=== PATIENT | male | born 1995 | race Caucasian/White ===

== ENCOUNTER 2018-04-01 12:36 | Observation (INO) | payer OTHER ==
[2018-04-01] MEDS ORDERED: Sodium Chloride 0.9% 1000 ML 1,000 ML IV STA (13:03)
[2018-04-01 13:12] LABS: BASOPHIL % 0.3 % (0.0-0.4); Basophil (Absolute #) 0.03 (0-0.4); Eosinophil % 4.2 % (0.00-5.0); Eosinophil (Absolute #) 0.47 (0-0.5); Granulocyte Absolute (ANC) 8.11 (1.4-6.9); Granulocytes % 72.8 % (36.0-66.0); Hematocrit 41.6 % (42-50); Lymphocytes % 17.1 % (24.0-44.0); Mean Corpuscular Hemoglobin 32.5 pg (26-32); Mean Corpuscular Hgb Concent. 36.1 g/dl (32-36); Mean Platelet Volume 9.8 fl (6-9.5); Monocyte (Absolute #) 0.62 (0.0-1.3); Monocytes % 5.6 % (0.0-12.0); Platelet Count 235 K/mm3 (150-450); Red Blood Count 4.62 M/mm3 (4.1-5.6); Red Cell Distribution Width 12.4 % (11.5-14.0); White Blood Count 11.1 K/mm3 (4.0-10.5)
[2018-04-01 13:32] LABS: ALBUMIN 4.8 g/dL (3.5-5.0); ALKALINE PHOSPHATASE 63 U/L (38-126); ANION GAP 12.9 MEQ/L (5-15); BLOOD UREA NITROGEN 12 mg/dL (9-20); CHLORIDE 101 mmol/L (98-107); Calcium 9.3 mg/dL (8.4-10.2); Carbon Dioxide 29 mmol/L (22-30); Creatinine 1 0.78 mg/dL (0.66-1.25); Glucose 96 mg/dL (74-106); Potassium 3.7 mmol/L (3.5-5.1); SGOT/AST 23 U/L (17-59); SGPT/ALT 33 U/L (0-50); SODIUM 139 mmol/L (137-145); Total Protein 7.3 g/dL (6.3-8.2)
[2018-04-01] MEDS ORDERED: Keppra 500 MG/5 ML*** 1,000 MG in D5w 100ML Mini Bag 100 ML 100 ML IV ONE (13:37)
[2018-04-01] MEDS ORDERED: Sodium Chloride 0.9% 1000 ML 1,000 ML ONE (13:48)
[2018-04-01] MEDS ORDERED: Keppra 500 MG/5 ML ONE (13:52)
[2018-04-01] MEDS ORDERED: Sodium Chloride 0.9% 100 ML IVPB 100 ML IV ONE (13:52)
[2018-04-01] MEDS ORDERED: D5w 100ML Mini Bag 100 ML 100 ML IV ONE (13:55)
--- NOTE | 2018-04-01 14:18 | XRAY ---
Exam: CT of the head without IV contrast from 04/01/2018. CTDI: 51.47 Comparison: CT of the head without IV contrast from 11/11/2010. Indication: 23-year-old male with seizure, hit left side of frontal area of head on tailgate after seizure, patient has history of seizures. Technique: Non-IV contrast axial images were obtained through the brain. Reconstructed coronal and sagittal images were created and reviewed. Findings: The ventricles are of normal size. No focal mass effect or midline shift is seen. No acute intracranial bleed or abnormal extra-axial fluid collection is seen. A small amount of falx calcification is seen anteriorly representing no change. The miller matter-white matter interfaces are well-maintained. No low attenuation area to suggest a new territorial infarct is seen. The cortical sulci and basilar cisterns appear unremarkable. Moderate mucosal thickening is seen within the posterior aspect of the left frontal sinus including the frontoethmoid sinus recess on the left. In addition, there is marked soft tissue density within both ethmoid sinuses. I also note moderate peripheral mucosal thickening within the sphenoid sinus on both sides of midline. Minimal mucosal thickening is seen at the upper anterior medial aspect of both maxillary sinuses, left greater than right. No air-fluid levels are seen. These findings are consistent with chronic paranasal sinus disease/chronic sinusitis. The findings are worse as compared to 11/11/2010. The mastoid air cells are clear. The calvarium of the skull appears intact. The internal auditory canals appear unremarkable. The middle ear cavities appear unremarkable., Impression: 1. No acute intracranial bleed or other acute intracranial process is seen. 2. No acute fracture of the calvarium of the skull is seen, particularly within the left frontal region. 3. At least moderate chronic sinusitis/sinus disease is seen throughout the visualized paranasal sinuses, most pronounced within the ethmoid sinuses. This has progressed as compared to 11/11/2010. No definite air-fluid levels are seen.
--- NOTE | 2018-04-01 14:19 | XRAY ---
Exam: AP upright portable chest film from 04/01/2018. Comparison: None. Indication: Syncope/seizure today. Findings: The heart size and contour are normal. I cannot exclude some tiny granulomatous calcifications within the left hilum. The remainder of the sourav and mediastinum appears unremarkable. No air space infiltrates, vascular congestion, pneumothorax, or pleural fluid is seen. The lungs are well expanded. The visualized bones appear intact. Impression: 1. No infiltrates or other acute cardiopulmonary disease is seen.
--- NOTE | 2018-04-01 14:28 | ERPHSYRPT ---
- History of Present Illness Time Seen by Provider: 04/01/18 13:00 Source: patient Exam Limitations: clinical condition Patient Subjective Stated Complaint: syncopal episode approximately 1130 this date Triage Nursing Assessment: pt ambulated to room 5 per self, steady gait, no noted difficulties, pt reportedly experienced a syncopal episode at approximately 1130, was seated on the tailgate of a truck when he had a witnessed sycnopal episode, father states other workers reported seizure like activity, pt has no history of seziures, denies headache, denies chest pain, denies dizziness or nause, denies any pain, pressure or ringing in the ears Physician History: PATIENT WITH A HISTORY OF SYNCOPE 1 YEAR AGO HAD A WITNESSED EPISODE OF SYNCOPE PRIOR TO ARRIVAL ASSOCIATED WITH TREMORS. HAD ASSOCIATED, DENIES HEADACHE, BLURRED VISION, URINARY INCONTINENCE, NECK PAIN, NUMBNESS, TINGLING OR WEAKNESS IN EXTREMITIES. Witnessed: by friend Prior Episodes: single episode today Timing/Duration: today Precipitating Factors: none Context: standing Loss of Consciousness: no loss of consciousness, other (FRIEND STATES PATIENT HAD TREMORS DURING SYNCOPE EPISODE) Charcter of event(s): became unresponsive, seizure activity observed Allergies/Adverse Reactions: No Known Drug Allergies Allergy (Unverified 04/01/18 12:57) Home Medications: Quetiapine Fumarate [Seroquel] 25 mg PO 04/01/18 [History] Hx Tetanus, Diphtheria Vaccination/Date Given: No Hx Influenza Vaccination/Date Given: No Hx Pneumococcal Vaccination/Date Given: No Immunizations Up to Date: No - Past Medical History Neurological History: Migraines ENT History: No Pertinent History Cardiac History: No Pertinent History Respiratory History: No Pertinent History Endocrine Medical History: No Pertinent History Musculoskeletal History: No Pertinent History GI Medical History: No Pertinent History History: No Pertinent History Psycho-Social History: Depression Male Reproductive Disorders: No Pertinent History - Past Surgical History Past Surgical History: No Neuro Surgical History: No Pertinent History Cardiac: No Pertinent History Respiratory: No Pertinent History Gastrointestinal: No Pertinent History Genitourinary: No Pertinent History Musculoskeletal: No Pertinent History Male Surgical History: No Pertinent History Other Surgical History: right wrist - Social History Smoking Status: Current every day smoker How long have you smoked: 5 Exposure to second hand smoke: Yes Drug Use: none Patient Lives Alone: No - Review of Systems Constitutional: No Fever, No Chills Eyes: No Symptoms Ears, Nose, & Throat: No Symptoms Respiratory: No Cough, No Dyspnea Cardiac: No Symptoms, No Chest Pain, No Edema, No Syncope Abdominal/Gastrointestinal: No Symptoms, No Abdominal Pain, No Nausea, No Vomiting, No Diarrhea Genitourinary Symptoms: No Dysuria Musculoskeletal: No Symptoms, No Back Pain, No Neck Pain Skin: No Rash Neurological: Seizure, Other (SYNCOPE), No Dizziness, No Focal Weakness, No Sensory Changes Psychological: No Symptoms Endocrine: No Symptoms All Other Systems: Reviewed and Negative Physical Exam - Nursing Vital Signs Nursing Vital Signs: Initial Vital Signs Temperature 97.9 F 04/01/18 12:47 Pulse Rate 64 04/01/18 12:47 Respiratory Rate 20 04/01/18 12:47 Blood Pressure 124/70 04/01/18 12:47 O2 Sat by Pulse Oximetry 97 04/01/18 12:47 Pain Scale Pain Intensity 0 - [place] Coma Scale Best Eye Response (Gabriela): (4) open spontaneously Best Verbal Response ([place]): (5) oriented Best Motor Response ([place]): (6) obeys commands Gabriela Total: 15 - Physical Exam General Appearance: no apparent distress, alert, other (ARRIVES TO EMERGENCY ALERT APPROPRIATE WITH NORMAL GAIT) Eye Exam: bilateral eye: PERRL, EOMI Ears, Nose, Throat Exam: normal ENT inspection, pharynx normal, moist mucous membranes Neck Exam: normal inspection, non-tender, supple, full range of motion Respiratory: normal breath sounds, lungs clear, No chest tenderness, No respiratory distress Cardiovascular: regular rate/rhythm, capillary refill <2 sec, No murmur, No pulse deficit Gastrointestinal: soft, No tenderness, No distention, No mass Back Exam: normal inspection, normal range of motion, No CVA tenderness, No vertebral tenderness Extremity Exam: normal inspection, normal range of motion, pelvis stable, No tenderness Peripheral Pulses: carotid (R): 2+, carotid (L): 2+, femoral (R): 2+, femoral (L ): 2+, dorsalis-pedis (R): 2+, dorsalis-pedis (L): 2+ Mental Status: alert, oriented x 3, cooperative clinic lead Exam: normal speech, PERRL, No facial droop Coordination/Gait: normal finger to nose Motor/Sensory: no motor deficit, no sensory deficit, no pronator drift DTR: bicep (R): 2+, bicep (L): 2+, tricep (R): 2+, tricep (L): 2+, knee (R): 2+ , knee (L): 2+, ankle (R): 2+, ankle (L): 2+ Skin Exam: normal color, warm, dry, No rash SpO2 Interpretation: normal SpO2: 100 Oxygen Delivery: Room Air - Course EKG Interpreted by Me: RATE, Sinus Naveed, NORMAL AXIS - Radiology Exams Chest X-ray Interpretation: Discussed w/ radiologist, Negative, No Infiltrates - CT Exams Head CT Interpretation: Discussed w/radiologist, No/Intracranial Hemorrhag, Other ( AT LEAST MODERATE CHRONIC SINUSITIS THROUGHOUT THE VISUALIZED PARANASAL SINUSES) Ordered Tests: Active Orders 24 hr Category Date Time Status Call Admit Doctor for Orders ON ADMISSION Care 04/01/18 15:11 Ordered Clean Catch Urine Specimen STAT Care 04/01/18 13:03 Active Code Status Order ROUTINE Care 04/01/18 15:11 Ordered EKG-ER Only STAT Care 04/01/18 13:03 Active IV Care Q6H Care 04/01/18 15:11 Ordered Neuro Checks Q4H Care 04/01/18 15:10 Ordered Orthostatic Vital Signs STAT Care 04/01/18 13:[address] in Observation ROUTINE Care 04/01/18 15:11 Ordered Seizure Precautions -SCCHED STAT Care 04/01/18 15:13 Ordered Vital Signs Q4H Care 04/01/18 15:10 Ordered CHEST 1 VIEW (PORTABLE) Stat Exams 04/01/18 13:27 Completed HEAD WITHOUT CONTRAST [CT] Stat Exams 04/01/18 13:04 Completed CBC W DIFF Stat Lab 04/01/18 13:00 Completed CMP Stat Lab 04/01/18 13:00 Completed CULTURE,URINE Stat Lab 04/01/18 14:52 Received MAGNESIUM Stat Lab 04/01/18 13:36 Completed TROPONIN Q3H Lab 04/01/18 13:00 Completed TROPONIN Q3H Lab 04/01/18 16:15 Ordered TROPONIN Q3H Lab 04/01/18 19:15 Ordered TROPONIN Q3H Lab 04/01/18 22:15 Ordered UA W/ MICROSCOPIC Stat Lab 04/01/18 14:52 Results Urine Triage Profile Stat Lab 04/01/18 14:52 Received Transfer Order Routine Transfer 04/01/18 Ordered Medication Summary Discontinued Medications Generic Name Dose Route Start Last Admin Trade Name Dieter PRN Reason Stop Dose Admin Sodium Chloride 1,000 mls @ 500 mls/hr 04/01/18 13:03 04/01/18 14:00 Sodium Chloride 0.9% 1000 Ml IV 04/01/18 15:02 500 mls/hr .Q2H STA Administration Levetiracetam 1,000 mg/ 110 mls @ 220 mls/hr 04/01/18 13:37 04/01/18 14:00 Dextrose IV 04/01/18 14:06 220 mls/hr STAT ONE Administration Sodium Chloride Confirm 04/01/18 13:48 Sodium Chloride 0.9% 1000 Ml Administered 04/01/18 13:49 Dose 1,000 mls @ ud .ROUTE .STK-MED ONE Sodium Chloride Confirm 04/01/18 13:52 Sodium Chloride 0.9% 100 Ml Ivpb Administered 04/01/18 13:53 Dose 100 mls @ ud IV .STK-MED ONE Dextrose Confirm 04/01/18 13:55 D5w 100ml Mini Bag 100 Ml Administered 04/01/18 13:56 Dose 100 mls @ ud IV .STK-MED ONE Levetiracetam Confirm 04/01/18 13:52 Keppra 500 Mg/5 Ml Administered 04/01/18 13:53 Dose 1,000 mg .ROUTE .STK-MED ONE Lab/Rad Data: Laboratory Result Diagrams 04/01/18 13:00 04/01/18 13:00 Laboratory Results 04/01/18 04/01/18 04/01/18 Range/Units 14:52 13:36 13:00 WBC (4.0-10.5) K/mm3 RBC (4.1-5.6) M/mm3 Hgb (12.5-18.0) gm/dl Hct (42-50) % MCV (78-100) fl MCH (26-32) pg MCHC (32-36) g/dl RDW (11.5-14.0) % Plt Count (150-450) K/mm3 MPV (6-9.5) fl Gran % (36.0-66.0) % Eos # (Auto) (0-0.5) Absolute Lymphs (auto) (1.0-4.6) Absolute Monos (auto) (0.0-1.3) Lymphocytes % (24.0-44.0) % Monocytes % (0.0-12.0) % Eosinophils % (0.00-5.0) % Basophils % (0.0-0.4) % Absolute Granulocytes (1.4-6.9) Basophils # (0-0.4) Sodium (137-145) mmol/L Potassium (3.5-5.1) mmol/L Chloride (98-107) mmol/L Carbon Dioxide (22-30) mmol/L Anion Gap (5-15) MEQ/L BUN (9-20) mg/dL Creatinine (0.66-1.25) mg/dL Estimated GFR ML/MIN Glucose (74-106) mg/dL Calcium (8.4-10.2) mg/dL Magnesium 1.6 (1.6-2.3) mg/dL Total Bilirubin (0.2-1.3) mg/dL AST (17-59) U/L ALT (0-50) U/L Alkaline Phosphatase (38-126) U/L Troponin I < 0.012 (0.000-0.034) ng/mL Serum Total Protein (6.3-8.2) g/dL Albumin (3.5-5.0) g/dL Ur Collection Type Pending Urine Color Pending Urine Appearance Pending Urine pH Pending Ur Specific [place] Pending Urine Protein Pending Urine Ketones Pending Urine Blood Pending Urine Nitrite Pending Urine Bilirubin Pending Urine Urobilinogen Pending Ur Leukocyte Esterase Pending Urine Microscopic WBC Pending Ur Epithelial Cells Pending Urine Bacteria Pending Urine Mucus Pending Urine Culture Reflexed YES (NO) Urine Glucose Pending Specimen Received Pending 04/01/18 04/01/18 Range/Units 13:00 13:00 WBC 11.1 H (4.0-10.5) K/mm3 RBC 4.62 (4.1-5.6) M/mm3 Hgb 15.0 (12.5-18.0) gm/dl Hct 41.6 L (42-50) % MCV 90.0 (78-100) fl MCH 32.5 H (26-32) pg MCHC 36.1 H (32-36) g/dl RDW 12.4 (11.5-14.0) % Plt Count 235 (150-450) K/mm3 MPV 9.8 H (6-9.5) fl Gran % 72.8 H (36.0-66.0) % Eos # (Auto) 0.47 (0-0.5) Absolute Lymphs (auto) 1.90 (1.0-4.6) Absolute Monos (auto) 0.62 (0.0-1.3) Lymphocytes % 17.1 L (24.0-44.0) % Monocytes % 5.6 (0.0-12.0) % Eosinophils % 4.2 (0.00-5.0) % Basophils % 0.3 (0.0-0.4) % Absolute Granulocytes 8.11 H (1.4-6.9) Basophils # 0.03 (0-0.4) Sodium 139 (137-145) mmol/L Potassium 3.7 (3.5-5.1) mmol/L Chloride 101 (98-107) mmol/L Carbon Dioxide 29 (22-30) mmol/L Anion Gap 12.9 (5-15) MEQ/L BUN 12 (9-20) mg/dL Creatinine 0.78 (0.66-1.25) mg/dL Estimated GFR > 60.0 ML/MIN Glucose 96 (74-106) mg/dL Calcium 9.3 (8.4-10.2) mg/dL Magnesium (1.6-2.3) mg/dL Total Bilirubin 0.70 (0.2-1.3) mg/dL AST 23 (17-59) U/L ALT 33 (0-50) U/L Alkaline Phosphatase 63 (38-126) U/L Troponin I (0.000-0.034) ng/mL Serum Total Protein 7.3 (6.3-8.2) g/dL Albumin 4.8 (3.5-5.0) g/dL Ur Collection Type Urine Color Urine Appearance Urine pH Ur Specific [place] Urine Protein Urine Ketones Urine Blood Urine Nitrite Urine Bilirubin Urine Urobilinogen Ur Leukocyte Esterase Urine Microscopic WBC Ur Epithelial Cells Urine Bacteria Urine Mucus Urine Culture Reflexed (NO) Urine Glucose Specimen Received - Progress Progress Note: 04/01/18 14:30 IV NORMAL SALINE 500ML/HR, KEPPRA 1000MG IVPB Discussed with : Nitin (DISCUSSED WITH DR CARREON AT 1500 FOR OBSERVATION) Counseled pt/family regarding: lab results, diagnosis, need for follow-up, rad results - Departure Time of Disposition: 15:20 Departure Disposition: Observation Clinical Impression: NEW ONSET SEIZURE, Syncope Condition: Stable Critical Care Time: No Referrals: EMMIE LAZAR, [facility] ADMINISTRATOR [Primary Care Provider] -
[2018-04-01 15:09] LABS: Appearance CLEAR (CLEAR); Bilirubin NEGATIVE (NEGATIVE); Blood NEGATIVE Ery/ul (0-5); Glucose NEGATIVE (NEGATIVE); Ketones NEGATIVE (NEGATIVE); Leukocyte Esterase 1+ (NEGATIVE); Nitrite NEGATIVE (NEGATIVE); Protein,Urine Dip NEGATIVE (Negative); Specific Gravity 1.015 (1.005-1.025); Urobilinogen NORMAL mg/dL (0-1)
[2018-04-01 15:10] LABS: Bacteria FEW /HPF (NEGATIVE); Epithelial Cells FEW /HPF (FEW); Mucus MODERATE /HPF (NEGATIVE)
[2018-04-01] MEDS ORDERED: Zofran 4 MG/2 ML VIAL IV PRN (15:10)
[2018-04-01] MEDS ORDERED: TYLENOL 325 MG PO PRN (15:10)
[2018-04-01 15:14] LABS: Amphetamine,Urine NEGATIVE (NEGATIVE); Barbiturate,Urine NEGATIVE (NEGATIVE); Benzodiazepine,Urine NEGATIVE (NEGATIVE); Cocaine,Urine NEGATIVE (NEGATIVE); Methadone,Urine NEGATIVE (NEGATIVE); Opiate,Urine NEGATIVE (NEGATIVE); PCP,Urine NEGATIVE (NEGATIVE); THC,Urine NEGATIVE (NEGATIVE)
[2018-04-01] MEDS ORDERED: Ativan 2 MG/1 ML VIAL IV PRN (15:14)
[2018-04-01] MEDS: Sodium Chloride 0.9% 1000 ML 1,000 ML IV SCH (18:42)
--- NOTE | 2018-04-01 19:33 | PCM.HP ---
History of Present Illness - Chief Complaint Chief Complaint: NEW ONSET SEIZURE DISORDER History of Present Illness: is a 23 year old male pt of Dr. Taveras who was sitting on a tailgate at [facility] when he felt his body tingling. He then woke up on the ground. His coworker said he was twitching all over. Pt did hit his L yazidism on the ground; has some residual soreness. Pt states he has had several similar episodes in the past, about once a year - he recalls at least four (2 syncopal, 2 with "stiffening" of his upper body). One syncopal episode he describes just standing in the office at work and passing out. He had two previous episodes where he would feel tingling in his upper extremities, starting distally and progressing proximally. Describes fingers and arms being contracted and jaw being contracted shut, but pt was aware during these episodes but could not move. No trouble breathing. He did have an aura in the form of tingling sensation. He did go to [facility] ER for the previous episodes; it was recommended that he get further workup but he did not. He was actively taking opioids and illicit drugs (including methamphetamines) during that time. However, prior to this most recent episode he has been clean for 26 days (just discharged from rehab last week). - Review of Systems Neurological: Parasthesia, Seizure Psychological: Drug Abuse All Other Systems: Reviewed and Negative Medications & Allergies Home Medications: Home Medication List Citalopram Hydrobromide [Celexa] 10 mg PO DAILY 04/01/18 [History Confirmed ] Allergies/Adverse Reactions: Allergies Allergy/AdvReac Type Severity Reaction Status Date / Time No Known Drug Allergies Allergy Verified 04/01/18 16:52 - Past Medical History Past Medical History: Yes Neurological History: Seizures ENT History: No Pertinent History Cardiac History: No Pertinent History Respiratory History: No Pertinent History Endocrine Medical History: No Pertinent History Musculoskelatal History: Arthritis GI Medical History: No Pertinent History History: No Pertinent History Pyscho-Social History: No Pertinent History Male Reproductive Disorders: No Pertinent History Comment: arthritis in his back - Past Surgical History Past Surgical History: Yes Neuro Surgical History: No Pertinent History Cardiac History: No Pertinent History Respiratory Surgery: No Pertinent History GI Surgical History: No Pertinent History Genitourinary Surgical Hx: No Pertinent History Musculskeletal Surgical Hx: Orthopedic Surgery Male Surgical History: No Pertinent History Other Surgical History: ORIF right wrist - Social History Smoking Status: Current some day smoker How long have you smoked: 7-8 yrs Exposure to second hand smoke: Yes Alcohol: None Drug Use: none - Physical Exam Vital Signs: Vital Signs - 24 hr Temp Pulse Resp BP Pulse Ox 04/01/18 15:58 97.7 F 18 124/58 100 04/01/18 15:53 97.7 F 48 L 18 124/58 100 04/01/18 15:21 100 04/01/18 15:10 97.7 F 48 L 16 124/58 100 04/01/18 14:50 54 L 16 110/67 98 04/01/18 14:05 54 L 18 111/77 100 04/01/18 12:47 97.9 F 64 20 124/70 97 General Appearance: no apparent distress, alert Neurologic Exam: oriented x 3, cooperative, 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, normal mood/affect, nml cerebellar function, other (UE and LE strength 5/5 grossly bilat) Eye Exam: PERRL/EOMI, eyes nml inspection Ears, Nose, Throat Exam: moist mucous membranes Neck Exam: normal inspection, non-tender, No lymphadenopathy Respiratory Exam: normal breath sounds, lungs clear, No crackles/rales, No rhonchi, No wheezing Cardiovascular Exam: regular rate/rhythm, normal heart sounds, No murmur Gastrointestinal/Abdomen Exam: soft, normal bowel sounds, No tenderness, No distention, No mass, No guarding, No rebound Back Exam: normal inspection, No rash Extremity Exam: normal inspection, No pedal edema, No swelling Skin Exam: normal color, warm, dry, No rash Results - Labs Lab/Micro Results: Lab Results-Last 24 Hours 04/01/18 04/01/18 04/01/18 Range/Units 13:00 13:00 13:00 WBC 11.1 H (4.0-10.5) K/mm3 RBC 4.62 (4.1-5.6) M/mm3 Hgb 15.0 (12.5-18.0) gm/dl Hct 41.6 L (42-50) % MCV 90.0 (78-100) fl MCH 32.5 H (26-32) pg MCHC 36.1 H (32-36) g/dl RDW 12.4 (11.5-14.0) % Plt Count 235 (150-450) K/mm3 MPV 9.8 H (6-9.5) fl Gran % 72.8 H (36.0-66.0) % Eos # (Auto) 0.47 (0-0.5) Absolute Lymphs (auto) 1.90 (1.0-4.6) Absolute Monos (auto) 0.62 (0.0-1.3) Lymphocytes % 17.1 L (24.0-44.0) % Monocytes % 5.6 (0.0-12.0) % Eosinophils % 4.2 (0.00-5.0) % Basophils % 0.3 (0.0-0.4) % Absolute Granulocytes 8.11 H (1.4-6.9) Basophils # 0.03 (0-0.4) Sodium 139 (137-145) mmol/L Potassium 3.7 (3.5-5.1) mmol/L Chloride 101 (98-107) mmol/L Carbon Dioxide 29 (22-30) mmol/L Anion Gap 12.9 (5-15) MEQ/L BUN 12 (9-20) mg/dL Creatinine 0.78 (0.66-1.25) mg/dL Estimated GFR > 60.0 ML/MIN Glucose 96 (74-106) mg/dL Calcium 9.3 (8.4-10.2) mg/dL Magnesium (1.6-2.3) mg/dL Total Bilirubin 0.70 (0.2-1.3) mg/dL AST 23 (17-59) U/L ALT 33 (0-50) U/L Alkaline Phosphatase 63 (38-126) U/L Troponin I < 0.012 (0.000-0.034) ng/mL Serum Total Protein 7.3 (6.3-8.2) g/dL Albumin 4.8 (3.5-5.0) g/dL Ur Collection Type Urine Color (YELLOW) Urine Appearance (CLEAR) Urine pH (5-6) Ur Specific [place] (1.005-1.025) Urine Protein (Negative) Urine Ketones (NEGATIVE) Urine Blood (0-5) Abiel/ul Urine Nitrite (NEGATIVE) Urine Bilirubin (NEGATIVE) Urine Urobilinogen (0-1) mg/dL Ur Leukocyte Esterase (NEGATIVE) Urine Microscopic WBC (0-5) /HPF Ur Epithelial Cells (FEW) /HPF Urine Bacteria (NEGATIVE) /HPF Urine Mucus (NEGATIVE) /HPF Urine Culture Reflexed (NO) Urine Glucose (NEGATIVE) mg/dL Urine Opiates Level (NEGATIVE) Ur Methadone (NEGATIVE) Urine Barbiturates (NEGATIVE) Ur Phencyclidine (PCP) (NEGATIVE) Urine Amphetamine (NEGATIVE) U Benzodiazepine Level (NEGATIVE) Urine Cocaine (NEGATIVE) Urine Marijuana (THC) (NEGATIVE) Specimen Received 04/01/18 04/01/18 04/01/18 Range/Units 13:36 14:52 14:52 WBC (4.0-10.5) K/mm3 RBC (4.1-5.6) M/mm3 Hgb (12.5-18.0) gm/dl Hct (42-50) % MCV (78-100) fl MCH (26-32) pg MCHC (32-36) g/dl RDW (11.5-14.0) % Plt Count (150-450) K/mm3 MPV (6-9.5) fl Gran % (36.0-66.0) % Eos # (Auto) (0-0.5) Absolute Lymphs (auto) (1.0-4.6) Absolute Monos (auto) (0.0-1.3) Lymphocytes % (24.0-44.0) % Monocytes % (0.0-12.0) % Eosinophils % (0.00-5.0) % Basophils % (0.0-0.4) % Absolute Granulocytes (1.4-6.9) Basophils # (0-0.4) Sodium (137-145) mmol/L Potassium (3.5-5.1) mmol/L Chloride (98-107) mmol/L Carbon Dioxide (22-30) mmol/L Anion Gap (5-15) MEQ/L BUN (9-20) mg/dL Creatinine (0.66-1.25) mg/dL Estimated GFR ML/MIN Glucose (74-106) mg/dL Calcium (8.4-10.2) mg/dL Magnesium 1.6 (1.6-2.3) mg/dL Total Bilirubin (0.2-1.3) mg/dL AST (17-59) U/L ALT (0-50) U/L Alkaline Phosphatase (38-126) U/L Troponin I (0.000-0.034) ng/mL Serum Total Protein (6.3-8.2) g/dL Albumin (3.5-5.0) g/dL Ur Collection Type CLEAN CATCH Urine Color YELLOW (YELLOW) Urine Appearance CLEAR (CLEAR) Urine pH 6.0 (5-6) Ur Specific [place] 1.015 (1.005-1.025) Urine Protein NEGATIVE (Negative) Urine Ketones NEGATIVE (NEGATIVE) Urine Blood NEGATIVE (0-5) Abiel/ul Urine Nitrite NEGATIVE (NEGATIVE) Urine Bilirubin NEGATIVE (NEGATIVE) Urine Urobilinogen NORMAL (0-1) mg/dL Ur Leukocyte Esterase 1+ (NEGATIVE) Urine Microscopic WBC 10-15 (0-5) /HPF Ur Epithelial Cells FEW (FEW) /HPF Urine Bacteria FEW (NEGATIVE) /HPF Urine Mucus MODERATE (NEGATIVE) /HPF Urine Culture Reflexed YES (NO) Urine Glucose NEGATIVE (NEGATIVE) mg/dL Urine Opiates Level NEGATIVE (NEGATIVE) Ur Methadone NEGATIVE (NEGATIVE) Urine Barbiturates NEGATIVE (NEGATIVE) Ur Phencyclidine (PCP) NEGATIVE (NEGATIVE) Urine Amphetamine NEGATIVE (NEGATIVE) U Benzodiazepine Level NEGATIVE (NEGATIVE) Urine Cocaine NEGATIVE (NEGATIVE) Urine Marijuana (THC) NEGATIVE (NEGATIVE) Specimen Received 04-01-18 1500 04/01/18 Range/Units 16:47 WBC (4.0-10.5) K/mm3 RBC (4.1-5.6) M/mm3 Hgb (12.5-18.0) gm/dl Hct (42-50) % MCV (78-100) fl MCH (26-32) pg MCHC (32-36) g/dl RDW (11.5-14.0) % Plt Count (150-450) K/mm3 MPV (6-9.5) fl Gran % (36.0-66.0) % Eos # (Auto) (0-0.5) Absolute Lymphs (auto) (1.0-4.6) Absolute Monos (auto) (0.0-1.3) Lymphocytes % (24.0-44.0) % Monocytes % (0.0-12.0) % Eosinophils % (0.00-5.0) % Basophils % (0.0-0.4) % Absolute Granulocytes (1.4-6.9) Basophils # (0-0.4) Sodium (137-145) mmol/L Potassium (3.5-5.1) mmol/L Chloride (98-107) mmol/L Carbon Dioxide (22-30) mmol/L Anion Gap (5-15) MEQ/L BUN (9-20) mg/dL Creatinine (0.66-1.25) mg/dL Estimated GFR ML/MIN Glucose (74-106) mg/dL Calcium (8.4-10.2) mg/dL Magnesium (1.6-2.3) mg/dL Total Bilirubin (0.2-1.3) mg/dL AST (17-59) U/L ALT (0-50) U/L Alkaline Phosphatase (38-126) U/L Troponin I < 0.012 (0.000-0.034) ng/mL Serum Total Protein (6.3-8.2) g/dL Albumin (3.5-5.0) g/dL Ur Collection Type Urine Color (YELLOW) Urine Appearance (CLEAR) Urine pH (5-6) Ur Specific [place] (1.005-1.025) Urine Protein (Negative) Urine Ketones (NEGATIVE) Urine Blood (0-5) Abiel/ul Urine Nitrite (NEGATIVE) Urine Bilirubin (NEGATIVE) Urine Urobilinogen (0-1) mg/dL Ur Leukocyte Esterase (NEGATIVE) Urine Microscopic WBC (0-5) /HPF Ur Epithelial Cells (FEW) /HPF Urine Bacteria (NEGATIVE) /HPF Urine Mucus (NEGATIVE) /HPF Urine Culture Reflexed (NO) Urine Glucose (NEGATIVE) mg/dL Urine Opiates Level (NEGATIVE) Ur Methadone (NEGATIVE) Urine Barbiturates (NEGATIVE) Ur Phencyclidine (PCP) (NEGATIVE) Urine Amphetamine (NEGATIVE) U Benzodiazepine Level (NEGATIVE) Urine Cocaine (NEGATIVE) Urine Marijuana (THC) (NEGATIVE) Specimen Received - Radiology Impressions Radiology Exams & Impressions: Radiology Procedures Category Date Time Status CHEST 1 VIEW (PORTABLE) Stat Exams 04/01/18 13:27 Completed HEAD WITHOUT CONTRAST [CT] Stat Exams 04/01/18 13:04 Completed - Other Procedures and Tests Respiratory Therapy 04/02/18 08:00 EEG 41-60 Minutes (Normal) ONCE Assessment/Plan (1) Seizure Current Visit: Yes Status: Acute Assessment & Plan: Will do EEG in the morning. Teleneurology consult. Pt has been noncompliant in the past, although he states he thought his previous episodes were related to his drug use. 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
[2018-04-01] MEDS ORDERED: KEPPRA 500 MG ONE (19:57)
[2018-04-01] MEDS: KEPPRA 500 MG PO SCH (22:17)
[2018-04-02] MEDS: Sodium Chloride 0.9% 1000 ML 1,000 ML IV SCH (04:34)
[2018-04-02 06:53] LABS: ALBUMIN 3.6 g/dL (3.5-5.0); ALKALINE PHOSPHATASE 50 U/L (38-126); ANION GAP 11.3 MEQ/L (5-15); BLOOD UREA NITROGEN 8 mg/dL (9-20); CHLORIDE 108 mmol/L (98-107); Calcium 8.8 mg/dL (8.4-10.2); Carbon Dioxide 26 mmol/L (22-30); Creatinine 1 0.73 mg/dL (0.66-1.25); Glucose 99 mg/dL (74-106); Potassium 3.7 mmol/L (3.5-5.1); SGOT/AST 16 U/L (17-59); SGPT/ALT 25 U/L (0-50); SODIUM 141 mmol/L (137-145); Total Protein 5.9 g/dL (6.3-8.2)
[2018-04-02] MEDS: KEPPRA 500 MG PO SCH ×2 (09:13→21:47)
--- NOTE | 2018-04-02 13:53 | XRAY ---
Exam: MRI of the brain without and with 10 ML's of IV Magnevist contrast material from 04/02/2018. Comparison: CT of the head without IV contrast from 04/01/2018. Indication: History of seizures, had seizure yesterday. Technique: Multiplanar, multisequence MRI imaging was obtained through the brain both without and with IV contrast. Findings: The ventricles are of normal size. The midline structures appear grossly unremarkable. I see no focal areas of restricted diffusion on the diffusion-weighted images. I see no evidence of intracranial hemorrhage or abnormal extra-axial fluid collection. No abnormal high or low signal intensities are seen within the brain parenchyma. I see no evidence of abnormal brain enhancement on the postcontrast images. Flow voids within the major central branches of the [place] appear unremarkable. The cortical sulci and cisterns appear unremarkable. There is evidence of significant paranasal sinus disease/sinusitis, most prominent within the ethmoid sinuses followed by the sphenoid sinus and left frontal sinus including the frontal ethmoid recess. Only mild mucosal thickening is seen within the visualized maxillary sinuses. No air-fluid levels are seen. This is unchanged from yesterday's CT exam. Impression: 1. No significant brain abnormality is seen. 2. Multi paranasal sinus disease/sinusitis without air-fluid levels. This is unchanged from yesterday's CT study of the head. Correlate clinically.
--- NOTE | 2018-04-02 14:20 | PCM.DS ---
Discharge Summary Date of Admission: 04/01/18 15:49 Admitting Physician: TANISHA CARREON Consults: Consults on Case 04/01/18 19:35 Tele-Health Consult ROUTINE Primary Care Provider: EMMIE LAZAR Allergies Allergies No Known Drug Allergies Allergy (Verified 04/01/18 16:52) Hospital Summary - Hospital Course Hospital Course: Pt admitted through ER after he had a witnessed apparently grand-mal type seizure in the parking lot [facility]. He was brought to [facility] ER and CT head was negative. It was initially thought this was a first time seizure but he has had several episodes in the past of questionable syncopal vs seizure type activity, although no grand-mal type activity. Pt was actively using drugs (opiates, methamphetamines) at that time so did not pursue workup beyond ER visits. However currently he has been sober for 27 days. EEG was done today, and MRI brain and neurology consult were ordered. TSH, RPR, and HIV are pending. If the consult does not require any more inpatient testing, will discharge pt to home today. - Vitals & Intake/Output Vital Signs: Vital Signs Temperature 97.8 F 04/02/18 13:28 Pulse Rate 70 04/02/18 13:28 Respiratory Rate 20 04/02/18 13:28 Blood Pressure 116/58 04/02/18 13:28 O2 Sat by Pulse Oximetry 97 04/02/18 13:28 Intake & Output: Intake & Output 03/31/18 04/01/18 04/02/18 04/03/18 11:59 11:59 11:59 11:59 Intake Total 840 360 Output Total 400 Balance 840 -40 Weight 57 kg - Lab Result Diagrams: 04/01/18 13:00 04/02/18 06:04 Lab Results-Last 24 Hrs: Lab Results-Last 24 Hours 04/01/18 04/01/18 04/01/18 Range/Units 13:36 14:52 14:52 Sodium (137-145) mmol/L Potassium (3.5-5.1) mmol/L Chloride (98-107) mmol/L Carbon Dioxide (22-30) mmol/L Anion Gap (5-15) MEQ/L BUN (9-20) mg/dL Creatinine (0.66-1.25) mg/dL Estimated GFR ML/MIN Glucose (74-106) mg/dL Calcium (8.4-10.2) mg/dL Magnesium 1.6 (1.6-2.3) mg/dL Total Bilirubin (0.2-1.3) mg/dL AST (17-59) U/L ALT (0-50) U/L Alkaline Phosphatase (38-126) U/L Troponin I (0.000-0.034) ng/mL Serum Total Protein (6.3-8.2) g/dL Albumin (3.5-5.0) g/dL TSH 3rd Generation (0.47-4.68) mIU/L Ur Collection Type CLEAN CATCH Urine Color YELLOW (YELLOW) Urine Appearance CLEAR (CLEAR) Urine pH 6.0 (5-6) Ur Specific [place] 1.015 (1.005-1.025) Urine Protein NEGATIVE (Negative) Urine Ketones NEGATIVE (NEGATIVE) Urine Blood NEGATIVE (0-5) Abiel/ul Urine Nitrite NEGATIVE (NEGATIVE) Urine Bilirubin NEGATIVE (NEGATIVE) Urine Urobilinogen NORMAL (0-1) mg/dL Ur Leukocyte Esterase 1+ (NEGATIVE) Urine Microscopic WBC 10-15 (0-5) /HPF Ur Epithelial Cells FEW (FEW) /HPF Urine Bacteria FEW (NEGATIVE) /HPF Urine Mucus MODERATE (NEGATIVE) /HPF Urine Culture Reflexed YES (NO) Urine Glucose NEGATIVE (NEGATIVE) mg/dL Urine Opiates Level NEGATIVE (NEGATIVE) Ur Methadone NEGATIVE (NEGATIVE) Urine Barbiturates NEGATIVE (NEGATIVE) Ur Phencyclidine (PCP) NEGATIVE (NEGATIVE) Urine Amphetamine NEGATIVE (NEGATIVE) U Benzodiazepine Level NEGATIVE (NEGATIVE) Urine Cocaine NEGATIVE (NEGATIVE) Urine Marijuana (THC) NEGATIVE (NEGATIVE) Specimen Received 04-01-18 1500 04/01/18 04/01/18 04/01/18 Range/Units 16:47 19:50 22:55 Sodium (137-145) mmol/L Potassium (3.5-5.1) mmol/L Chloride (98-107) mmol/L Carbon Dioxide (22-30) mmol/L Anion Gap (5-15) MEQ/L BUN (9-20) mg/dL Creatinine (0.66-1.25) mg/dL Estimated GFR ML/MIN Glucose (74-106) mg/dL Calcium (8.4-10.2) mg/dL Magnesium (1.6-2.3) mg/dL Total Bilirubin (0.2-1.3) mg/dL AST (17-59) U/L ALT (0-50) U/L Alkaline Phosphatase (38-126) U/L Troponin I < 0.012 < 0.012 < 0.012 (0.000-0.034) ng/mL Serum Total Protein (6.3-8.2) g/dL Albumin (3.5-5.0) g/dL TSH 3rd Generation (0.47-4.68) mIU/L Ur Collection Type Urine Color (YELLOW) Urine Appearance (CLEAR) Urine pH (5-6) Ur Specific [place] (1.005-1.025) Urine Protein (Negative) Urine Ketones (NEGATIVE) Urine Blood (0-5) Abiel/ul Urine Nitrite (NEGATIVE) Urine Bilirubin (NEGATIVE) Urine Urobilinogen (0-1) mg/dL Ur Leukocyte Esterase (NEGATIVE) Urine Microscopic WBC (0-5) /HPF Ur Epithelial Cells (FEW) /HPF Urine Bacteria (NEGATIVE) /HPF Urine Mucus (NEGATIVE) /HPF Urine Culture Reflexed (NO) Urine Glucose (NEGATIVE) mg/dL Urine Opiates Level (NEGATIVE) Ur Methadone (NEGATIVE) Urine Barbiturates (NEGATIVE) Ur Phencyclidine (PCP) (NEGATIVE) Urine Amphetamine (NEGATIVE) U Benzodiazepine Level (NEGATIVE) Urine Cocaine (NEGATIVE) Urine Marijuana (THC) (NEGATIVE) Specimen Received 04/02/18 Range/Units 06:04 Sodium 141 (137-145) mmol/L Potassium 3.7 (3.5-5.1) mmol/L Chloride 108 H (98-107) mmol/L Carbon Dioxide 26 (22-30) mmol/L Anion Gap 11.3 (5-15) MEQ/L BUN 8 L (9-20) mg/dL Creatinine 0.73 (0.66-1.25) mg/dL Estimated GFR > 60.0 ML/MIN Glucose 99 (74-106) mg/dL Calcium 8.8 (8.4-10.2) mg/dL Magnesium (1.6-2.3) mg/dL Total Bilirubin 0.50 (0.2-1.3) mg/dL AST 16 L (17-59) U/L ALT 25 (0-50) U/L Alkaline Phosphatase 50 (38-126) U/L Troponin I (0.000-0.034) ng/mL Serum Total Protein 5.9 L (6.3-8.2) g/dL Albumin 3.6 (3.5-5.0) g/dL TSH 3rd Generation 1.800 (0.47-4.68) mIU/L Ur Collection Type Urine Color (YELLOW) Urine Appearance (CLEAR) Urine pH (5-6) Ur Specific [place] (1.005-1.025) Urine Protein (Negative) Urine Ketones (NEGATIVE) Urine Blood (0-5) Abiel/ul Urine Nitrite (NEGATIVE) Urine Bilirubin (NEGATIVE) Urine Urobilinogen (0-1) mg/dL Ur Leukocyte Esterase (NEGATIVE) Urine Microscopic WBC (0-5) /HPF Ur Epithelial Cells (FEW) /HPF Urine Bacteria (NEGATIVE) /HPF Urine Mucus (NEGATIVE) /HPF Urine Culture Reflexed (NO) Urine Glucose (NEGATIVE) mg/dL Urine Opiates Level (NEGATIVE) Ur Methadone (NEGATIVE) Urine Barbiturates (NEGATIVE) Ur Phencyclidine (PCP) (NEGATIVE) Urine Amphetamine (NEGATIVE) U Benzodiazepine Level (NEGATIVE) Urine Cocaine (NEGATIVE) Urine Marijuana (THC) (NEGATIVE) Specimen Received Micro Results-Entire Visit: Microbiology 04/01/18 14:52 Urine Culture - Preliminary Clean Catch Midstream NO GROWTH TO DATE - Radiology Exams Ordered Rad Exams-Entire Visit: Radiology Procedures Category Date Time Status CHEST 1 VIEW (PORTABLE) Stat Exams 04/01/18 13:27 Completed HEAD WITHOUT CONTRAST [CT] Stat Exams 04/01/18 13:04 Completed MRI BRAIN W & W/O CONTRAST [MRI] Routine Exams 04/02/18 09:00 Completed - Procedures and Test Procedures and Tests throughout Hospitalization: Therapy Orders & Screens 04/02/18 08:00 EEG 41-60 Minutes (Normal) ONCE Comment: Reason For Exam: New onset seizure disorder Diagnosis: NEW ONSET SEIZURE DISORDER Discharge Exam General Appearance: no apparent distress, alert Neurologic Exam: oriented x 3, cooperative Skin Exam: normal color, warm, dry, No rash Ears, Nose, Throat Exam: moist mucous membranes Neck Exam: normal inspection Respiratory Exam: normal breath sounds, lungs clear, No crackles/rales, No rhonchi, No wheezing Cardiovascular Exam: regular rate/rhythm, normal heart sounds, No murmur Extremity Exam: normal inspection, No swelling Back Exam: normal inspection, No rash Final Diagnosis/Problem List - Final Discharge Diagnosis/Problem (1) Seizure Current Visit: Yes Status: Acute Onset Date: ~04/01/18 Assessment & Plan: Possible. CT head neg. MRI to be done today. EEG pending. Neurology consult pending, thank you. If no further inpatient workup needed, pt likely to go home. 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
[2018-04-03] MEDS: Sodium Chloride 0.9% 1000 ML 1,000 ML IV SCH (01:40)
--- NOTE | 2018-04-03 07:11 | PCM.DS ---
Discharge Summary Date of Admission: 04/01/18 15:49 Admitting Physician: TANISHA TAVERAS Consults: Consults on Case 04/01/18 19:35 Tele-Health Consult ROUTINE Primary Care Provider: EMMIE LAZAR Allergies Allergies No Known Drug Allergies Allergy (Verified 04/01/18 16:52) Hospital Summary - Hospital Course Hospital Course: patient was admitted with presumed seizure activity, was loaded with keppra. MRI negative, history of drug abuse but not for the last 4 weeks. neuro consult performed, recommend workup for syncope, echo pending today then f/u with outpatient neurology - Vitals & Intake/Output Vital Signs: Vital Signs Temperature 97.7 F 04/03/18 04:00 Pulse Rate 58 L 04/03/18 04:00 Respiratory Rate 18 04/03/18 04:00 Blood Pressure 101/57 04/03/18 04:00 O2 Sat by Pulse Oximetry 97 04/03/18 04:00 Intake & Output: Intake & Output 03/31/18 04/01/18 04/02/18 04/03/18 11:59 11:59 11:59 11:59 Intake Total 840 3720 Output Total 400 Balance 840 3320 Weight 57 kg - Lab Result Diagrams: 04/01/18 13:00 04/02/18 06:04 Micro Results-Entire Visit: Microbiology 04/01/18 14:52 Urine Culture - Preliminary Clean Catch Midstream NO GROWTH TO DATE - Radiology Exams Ordered Rad Exams-Entire Visit: Radiology Procedures Category Date Time Status CHEST 1 VIEW (PORTABLE) Stat Exams 04/01/18 13:[address] ANGIOGRAPHY NECK [CT] Urgent Exams 04/02/18 15:34 Taken CTA HEAD W AND/OR WO CONTRAST [CT] Urgent Exams 04/02/18 15:34 Taken ECHO W/2D AND DOPPLER [US] Urgent Exams 04/03/18 15:40 Ordered HEAD WITHOUT CONTRAST [CT] Stat Exams 04/01/18 13:04 Completed MRI BRAIN W & W/O CONTRAST [MRI] Routine Exams 04/02/18 09:00 Completed - Procedures and Test Procedures and Tests throughout Hospitalization: Therapy Orders & Screens 04/02/18 08:00 EEG 41-60 Minutes (Normal) ONCE Comment: Reason For Exam: New onset seizure disorder Diagnosis: NEW ONSET SEIZURE DISORDER Discharge Exam General Appearance: no apparent distress, alert Neurologic Exam: alert, oriented x 3, cooperative, normal mood/affect, nml cerebellar function, sensation nml, No motor deficits Respiratory Exam: normal breath sounds, lungs clear, No respiratory distress Cardiovascular Exam: regular rate/rhythm, normal heart sounds Gastrointestinal/Abdomen Exam: soft, No tenderness, No mass Extremity Exam: normal inspection, normal range of motion Final Diagnosis/Problem List - Final Discharge Diagnosis/Problem (1) Seizure Current Visit: Yes Status: Acute Onset Date: ~04/01/18 Assessment & Plan: ? seizure vs syncope, will continue keppra. patient informed no driving until cleared by OP neuro consult. - Discharge Disposition: Home, Self-Care Condition: Stable Prescriptions: New Levetiracetam [Keppra 500 mg ] 500 mg PO BID 30 Days #60 tablet Levetiracetam [Keppra 500 mg ] 500 mg PO BID #60 tablet Continue Citalopram Hydrobromide [Celexa] 10 mg PO DAILY Additional Instructions: [facility] Neurology to call with scheduled appointment date and time. Keep scheduled appointment with Dr. Haas at [facility] on April 10 at 12:30. Keep scheduled appointment with Dr. Taveras on April 12 at 10:30. D/C home after CTA and ECHO. Follow up with: CARLOS HAAS [CONSULTING PHYSICIAN] - 04/10/18 12:30 pm ([facility]) TANISHA TAVERAS MD [ACTIVE STAFF] - 04/12/18 10:30 am EUNICE SARMIENTO [NON-STAFF PHY W/O PRIVILEGES] - 1 Week
[2018-04-03 07:18] VITALS: BP 91/55; PULSE 50; O2SAT 98
[2018-04-03] MEDS: KEPPRA 500 MG PO SCH (08:42)
--- NOTE | 2018-04-03 09:13 | XRAY ---
Exam: CTA of the head with IV contrast from 04/02/2018. Comparison: MRI of the brain without and with IV contrast from 04/02/[address] of the head without IV contrast from 04/01/2018. Indication: Seizure. Technique: Thin section post IV contrast axial images were obtained through the brain during automated injection of 80 cc of Isovue-370 contrast material. Reformatted coronal and sagittal images were created and reviewed. In addition, 3-D volume rendered images were created at the workstation. Findings: Enhancing vessels about the [place] appear unremarkable. I see no evidence of cerebral artery aneurysm. There is a small "gap" within the proximal left anterior cerebral artery on the volume rendered images which I believe is due to technical reasons. I don't believe this represents a real finding upon review of the axial source images. The distal vertebral arteries and basilar artery appear unremarkable as well as the distal basilar artery branches. The draining intracranial sinuses reveal no gross abnormality. The remainder of the brain reveals no focal mass effect, midline shift, or enhancing lesion. No low attenuation territorial infarct is seen. No abnormal extra-axial fluid collection is seen. The ventricles are of normal size and are midline. The orbits appear within normal limits. I do note fairly extensive pansinusitis. This is similar to the CT study from 04/01/2018 but worse than on a prior CT of the head from 11/11/2010. Sinus disease within the ethmoid sinuses is most pronounced and is moderate to marked in degree. Moderate peripheral mucosal thickening within the sphenoid sinuses and mild peripheral mucosal thickening within the frontal sinuses and maxillary sinuses are seen. There are no air-fluid levels. The remainder of the calvar[place] of the skull appears intact. Impression: 1. Normal CTA of the brain. 2. Incidental note of pansinusitis. This is most pronounced within the ethmoid sinuses. This is similar to a recent CT of the head from 04/01/2018 but represents a worsening as compared to 11/11/2010. The findings within the frontal sinuses, sphenoid sinus, and maxillary sinuses appear chronic. The findings within the ethmoid sinuses could be chronic, or acute superimposed upon chronic. Correlate clinically.
--- NOTE | 2018-04-03 09:38 | XRAY ---
Exam: CTA of the neck for evaluation of the carotid arteries with IV contrast from 04/02/2018. CTDI: 22.30 Comparison: None. Indication: Seizures. Technique: Thin section post IV contrast axial images were obtained from the mid aspect of the lung apices through the neck and to the vertex of the skull during automated injection of 80 cc of Isovue-370 contrast material. Reformatted sagittal and coronal images were created and viewed. Also, 3-D volume rendered images were created for each carotid artery at the CT workstation. Findings: Both cervical common carotid arteries, their bifurcations, and the internal and external carotid arteries within the neck to the base of the skull appear normal. There is no stenosis or evidence of dissection. I again see evidence of pansinusitis, most prominent within the ethmoid sinuses. This could be chronic, but I cannot exclude acute superimposed acute disease within the ethmoid sinuses. Correlate clinically. The frontal, maxillary, and sphenoid sinuses reveal peripheral mucosal thickening without air-fluid levels. Soft tissues of the neck reveal some scattered bilateral non-pathological cervical lymph nodes, the largest measuring 9 mm x 13 mm adjacent to the left carotid artery bifurcation on axial image #62. No other suspicious soft tissue neck mass or fluid collection is seen. The thyroid gland enhances uniformly. The oropharynx/hypopharynx, epiglottis, glottis, and subglottic airway appear unremarkable. The parotid glands and submandibular glands appear symmetric bilaterally. The visualized lung apices are unremarkable. No significant skeletal abnormality is seen. Impression: 1. Unremarkable CTA of the neck. Both carotid arteries appear unremarkable. 2. I again see evidence of pansinusitis which is likely chronic, although this cannot be stated with certainty at the level of the ethmoid sinuses. Correlate clinically. 3. Some scattered nonspecific/nonpathological cervical lymph nodes are seen bilaterally. A worrisome neck mass is not seen.
[2018-04-03 11:19] LABS: RPR Screen Non Reactive (Non Reactive)
== END 2018-04-03 09:17 | disposition home or self-care (01) ==
LOC: ED 12:36 → MED SURG 15:49
PROVIDERS: ADMIT Family Medicine; ATTEND Family Medicine
DX: R56.9 Unspecified convulsions (principal); F19.11 Other psychoactive substance abuse, in remission
CPT/HCPCS: 36000; 36415; 70450; 70496; 70498; 70553; 71045; 80053; 80307; 81000; 83735; 84443; 84484; 85025; 86592; 86593; 86701; 86702; 86780; 87086; 87389; 93005; 93268; 93306; 95812; 96360; 96361; 96365; 99285; J1953; A9270-GY; G0378